=== PATIENT | male | born 1975 | race Caucasian/White ===

== ENCOUNTER 2023-07-16 09:08 | Outpatient (AMB) | payer OTHER, SELFPAY ==
[2023-07-16 09:31] VITALS: BMI 26.4
--- NOTE | 2023-07-16 09:31 | MHC.OFFVIS ---
Vital Signs 07/16/23 09:31 Height 5 ft 10 in Weight 184 lb BMI 26.4 Intake Visit Reasons: [employer]-Chronic right elbow pain Intake Note: Harlan a 48 year old right hand dominant male who presents today for an evaluation of right elbow pain. Patient reports about 4 weeks ago when he was moving things around he felt a burning sensation in his antecubital space. He was seen by his PCP who referred him to orthopedics. Currently he has soreness with certain movements. He has tried a compression wrap however this made his discomfort worse. He has numbness and tingling in his hand and all his fingers however this has been present prior to elbow pain. Allergies naproxen [Naprosyn] Allergy (Unknown, Verified 07/16/23 09:31) unknown HPI HPI [employer]-Chronic right elbow pain: Details: 48-year-old right hand dominant male who presents to the office today for evaluation of chronic right elbow pain after he experienced a burning sensation in his antecubital space while moving things, about 4 weeks ago. He was seen by his PCP who referred him to our office. He currently states he has pain and soreness in his elbow with certain movements that is aggravated with pushing. He also c/o numbness and tingling in his whole hand that has been present prior to the elbow pain. He has tried compression wrap which made his discomfort worse. [facility] Social History (Updated 07/16/23 @ 09:32 by Santa Fowler [facility]) Alcohol intake: current Alcohol intake frequency: 0-2 drinks per day Alcohol type: beer Patient Tobacco Use Status: Current everyday Tobacco user Cigarette Packs Per Day: 0.5 Current occupation: automotive worker, right hand dominant Review of Systems Const All systems reviewed & are unremarkable except as noted in HPI and below Physical Exam Vital Signs: BMI result Body Mass Index 26.4 Const General: cooperative, healthy appearing, comfortable, no acute distress, well developed and alert Orientation/consciousness: patient oriented x3 HEENT Head: Yes normal to inspection, Yes normocephalic and Yes atraumatic Eyes General: appearance normal, both eyes and all related structures Resp Effort & Inspection: normal respiratory effort and able to speak in complete sentences Cardio Rate: regular rate Peripheral pulses: Peripheral pulses 2+ throughout GI Palpation (GI): Soft to palpation Skin Lesions: no lesions Rashes: no rashes Neuro General: patient oriented x3 Extrem Other: Right elbow: Normal to inspection. He has no palpable defect along the distal bicep tendon but he does have significant tenderness to palpation. He can supinate and pronate with mild discomfort. No significant weakness. NVI. Results Reviewed Results Reviewed: X-rays of the right elbow obtained in the office today are negative for any acute or chronic abnormalities. Assessment & Plan Assessment & Plan (1) Strain of right biceps: Code(s): S46.211A - Strain of muscle, fascia and tendon of other parts of biceps, right arm, initial encounter Category: Medical Plan It appears that he has a right distal bicep tendon strain. I did recommend him a course of occupational therapy and modification of activities. He will avoid any type of lifting, pushing, pulling or carrying greater than a 5 pounds for 6 weeks. I would like to see him back at that time so that I can return him to return full duty. He will contact me sooner if he has any questions or concerns. Orders: Orders XR elbow RT min 3V Today M25.521 - Pain in right elbow OT Evaluation and Treatment Today S46.211A - Strain of muscle, fascia and tendon of other parts of biceps, right arm, initial encounter Patient Instructions: Scribed for Fredis Mccarthy PA-C, by Jeffry Padron medical radiation dosimetrist, on 07/16/2023 at 9:15 AM EST.? I, Fredis Mccarthy PA-C, have personally reviewed and agree with the information entered by the scribe. Coding Level of Care Code New Pt Level 3 (64513) Diagnoses Strain of right biceps S46.211A
== END 2023-07-16 10:02 | disposition home or self-care (01) ==
PROVIDERS: PCP Internal Medicine; Visit Provider Physician Assistant
DX: S46.211A Strain of muscle, fascia and tendon of other parts of biceps, right arm, initial encounter (principal)
CPT/HCPCS: 99203

== ENCOUNTER 2023-07-16 09:08 | Outpatient (REF) | payer OTHER, SELFPAY ==
--- NOTE | ~2023-07-16 | XR_ITS ---
EXAMINATION: XR ELBOW, RIGHT CLINICAL INFORMATION: Elbow pain COMPARISON: None available. TECHNIQUE: AP, lateral, and oblique views of the right elbow. FINDINGS: No fracture or joint effusion. Alignment is anatomic. Joint spaces are maintained. No suspicious lytic or blastic lesion. No abnormal soft tissue calcification. XR/XR elbow RT min 3V IMPRESSION: No evidence of acute osseous abnormality.
== END 2023-07-16 09:09 | disposition home or self-care (01) ==
LOC: HO.HOSX 09:08
PROVIDERS: PCP Internal Medicine; Visit Provider Physician Assistant
DX: S46.211A Strain of muscle, fascia and tendon of other parts of biceps, right arm, initial encounter (principal)
CPT/HCPCS: 73080